=== PATIENT | female | born 1985 | race Caucasian/White ===

== ENCOUNTER 2018-04-17 18:58 | Emergency (ER) | payer BC ==
[~2018-04-17] VITALS: Ht 160 cm; Wt 64.4 kg
== END 2018-04-17 19:57 | disposition home or self-care (01) ==
LOC: ED 18:58
DX: T65.891A Toxic effect of other specified substances, accidental (unintentional), initial encounter (principal); H10.213 Acute toxic conjunctivitis, bilateral; Z91.011 Allergy to milk products; Z79.899 Other long term (current) drug therapy
CPT/HCPCS: 99283